=== PATIENT | female | born 2000 | race Caucasian/White ===

== ENCOUNTER → 2020-03-20 | Outpatient (REF) | payer OTHER, SELFPAY ==
[2020-03-20 22:26] LABS: CHLAMYDIA DNA AMPLIFICATION POSITIVE (NEGATIVE); GC DNA AMPLIFICATION NEGATIVE (NEGATIVE)
== END ==
LOC: M SFHCLERA 15:05
PROVIDERS: ATTEND Nurse Practitioner Family
DX: R30.0 Dysuria (principal)
CPT/HCPCS: 81002; 81025; 87086; 87661; 96372; G0463; J0696